=== PATIENT | female | born 1990 | race Caucasian/White ===

== ENCOUNTER 2016-08-31 13:28 | Emergency (ER) | payer MEDICAID | END 2016-08-31 17:16 | disposition home or self-care (01) | LOC: ER 13:28 | DX: O20.0 Threatened abortion (principal); O23.11 Infections of bladder in pregnancy, first trimester; N30.00 Acute cystitis without hematuria; O23.591 Infection of other part of genital tract in pregnancy, first trimester; N76.0 Acute vaginitis; Z3A.10 10 weeks gestation of pregnancy; K02.9 Dental caries, unspecified | CPT/HCPCS: 36415; 76817; 80053; 81001; 83690; 84702; 85025; 87088; 87491; 87591; 87800 ==